=== PATIENT | female | born 1925 | race Caucasian/White ===

== ENCOUNTER 2016-12-17 11:56 | Emergency (ER) | payer MEDICARE ==
[2016-12-17] MEDS ORDERED: NS 0.9% 1000 ML* 1,000 ML IV ONE (12:48)
--- NOTE | 2016-12-17 13:34 | RAD ---
HISTORY: Weakness COMPARISONS: July 09, 2010 VIEWS: 2: Frontal and lateral views of the chest. FINDINGS: CARDIOMEDIASTINAL SILHOUETTE: The cardiomediastinal silhouette is normal. INDRA: The indra are normal. PLEURA: The costophrenic angles are sharp. No pleural abnormalities are noted. LUNG PARENCHYMA: There is hyperinflation with flattening of the diaphragm and expansion of the AP diameter of the chest. ABDOMEN: The upper abdomen is clear. There is no subphrenic gas. BONES AND SOFT TISSUES: Degenerative changes are noted along the spine. OTHER: None. IMPRESSION: HYPERINFLATION, CONSISTENT WITH COPD. NO ACTIVE CARDIOPULMONARY DISEASE.
[2016-12-17 13:37] LABS: Hematocrit 36 % (35-47); Mean Corpuscular HGB Conc 34 g/dl (31-36); Mean Corpuscular Hemoglobin 32 pg (27-31); Mean Corpuscular Volume 94 fL (80-97); Mean Platelet Volume 7 um3 (7.4-10.4); Red Blood Count 3.81 10^6/ul (4.0-5.4); Red Cell Distribution Width 13 % (10.5-15); White Blood Count 11.3 10^3/ul (3.5-10.8)
[2016-12-17 13:56] LABS: Add Diff/Slide Review? Manual Diff Added; Comments Flag Yes
[2016-12-17 13:57] LABS: Calcium 9.4 mg/dL (8.6-10.3); EGFR African American 133.8 (>60); EGFR Non-African American 104.1 (>60); Globulin 2.7 g/dL (2-4); Potassium 3.6 mmol/L (3.5-5.0); Total Bilirubin 0.6 mg/dL (0.2-1.0); Total Protein 6.7 g/dL (6.4-8.9); Troponin I 0.01 ng/mL (<0.04)
--- NOTE | 2016-12-17 14:07 | RAD ---
INDICATION: Weakness and headache COMPARISON: Similar CT of the brain dated December 22, 2015 TECHNIQUE: Contiguous axial sections of the brain were obtained from the skull base to the vertex without contrast. FINDINGS: The ventricles, cisterns and sulci symmetrical involutional changes similar in appearance to the prior head CT. There is moderate periventricular and subcortical white matter hypoattenuation, similar in appearance to the prior CT, most consistent with chronic microvascular disease.. The shafer-white matter differentiation is adequately maintained and there is no sulcal effacement. No significant focal abnormality or mass effect is present. There is no evidence for intracranial hemorrhage. No significant focal osseous abnormality is present. The visualized portion of the paranasal sinuses and mastoid air cells appear clear. IMPRESSION: Chronic findings include evidence of microvascular disease and age-appropriate involutional changes without significant change from the [address]
[2016-12-17 14:23] LABS: TSH (Thyroid Stimulating Horm) 2.04 mcIU/mL (0.34-5.60)
[2016-12-17 15:45] LABS: Urine Bacteria Absent (Absent); Urine Bilirubin Negative (Negative); Urine Glucose Negative (Negative); Urine Nitrite Negative (Negative)
[2016-12-17 17:28] VITALS: BP 115/46
[2016-12-17 18:07] LABS: Immature Granulocytes 1 % (0-9); Neutrophil % 74 % (38-83)
[2016-12-17 18:08] LABS: Add Path Review? YES; RBC Morphology Normal (Normal)
--- NOTE | 2016-12-18 07:29 | ED ---
Hermelindo Le Alfonso scribed for Gianni Almaraz MD on 12/17/16 at 1248 . Complex/Multi-Sys Presentation - HPI Summary HPI Summary: This patient is an 89 year old F [facility]IB[facility] to [facility] with a chief complaint of generalized weakness since 2 weeks ago. She states my eyes get very tired and my body flops. The patient rates the pain 2/10 in severity. Symptoms aggravated by nothing. Symptoms alleviated by nothing. Patient reports headache (1 week). Patient denies CP, SOB, fever, chills, abdominal pain, and diarrhea. - History Of Current Complaint Chief Complaint: EDWeakness Time Seen by Provider: 12/17/16 12:23 Hx Obtained From: Patient Onset/Duration: Sudden Onset, Lasting Weeks - 2, Still Present Timing: Constant Severity Currently: Mild Aggravating Factor(s): nothing Alleviating Factor(s): nothing Associated Signs And Symptoms: Positive: Other - headache (1 week). Patient denies CP, SOB, fever, chills, abdominal pain, and diarrhea. 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12, Hx Shingles Denies: History Other Infectious Disease, Traveled Outside the [place] in Last 30 Days - Family History Known Family History: Negative: Seizure Disorder - Social History Alcohol Use: Daily Alcohol Amount: 2 with water at dinner Substance Use Type: Reports: None Smoking Status (MU): Former Smoker Have You Smoked in the Last Year: No Review of Systems Negative: Fever, Chills Negative: Chest Pain Negative: Shortness Of Breath Negative: Abdominal Pain, Diarrhea Positive: Headache, Weakness All Other Systems Reviewed And Are Negative: Yes Physical Exam - Summary Physical Exam Summary: VITAL SIGNS: Reviewed. GENERAL: Patient is an elderly and nourished female who is lying comfortable in the stretcher. Patient is not in any acute respiratory distress. HEAD AND FACE: No signs of trauma. No ecchymosis, hematomas or skull depressions. No sinus tenderness. EYES: PERRLA, EOMI x 2, No injected conjunctiva, no nystagmus. EARS: Hearing grossly intact. Ear canals and tympanic membranes are within normal limits. MOUTH: Oropharynx within normal limits. NECK: Supple, trachea is midline, no adenopathy, no JVD, no carotid bruit, no c- spine tenderness, neck with full ROM. CHEST: Symmetric, no tenderness at palpation LUNGS: Clear to auscultation bilaterally. No wheezing or crackles. CVS: Regular rate and rhythm, S1 and S2 present, no murmurs or gallops appreciated. ABDOMEN: Soft, non-tender. No signs of distention. No rebound no guarding, and no masses palpated. Bowel sounds are normal. EXTREMITIES: FROM in all major joints, no edema, no cyanosis or clubbing. NEURO: Alert and oriented x 3. No acute neurological deficits. Speech is normal and follows commands. SKIN: Dry and warm Triage Information Reviewed: Yes Vital Signs On Initial Exam: Initial Vitals Temp Pulse Resp BP Pulse Ox 98.2 F 56 14 148/61 99 12/17/16 12:07 12/17/16 12:07 12/17/16 12:07 12/17/16 12:07 12/17/16 12:07 Vital Signs Reviewed: Yes - Julian Coma Scale Best Eye Response: 4 - Spontaneous Best Motor Response: 6 - Obeys Commands Best Verbal Response: 5 - Oriented Coma Scale Total: 15 Diagnostics - Vital Signs Vital Signs Temp Pulse Resp BP Pulse Ox 12/17/16 12:16 58 23 98 12/17/16 12:07 98.2 F 56 14 148/61 99 - Laboratory Result Diagrams: 12/17/16 13:27 12/17/16 13:27 Lab Statement: Any lab studies that have been ordered have been reviewed, and results considered in the medical decision making process. - Radiology CXR Radiology Interpretation Completed By: Radiologist - HYPERINFLATION, CONSISTENT WITH COPD. NO ACTIVE CARDIOPULMONARY DISEASE. ED physician has reviewed this radiology report and agrees. - CT brain CT Interpretation Completed By: Radiologist - Chronic findings include evidence of microvascular disease and age-appropriate involutional changes without significant change from the [address] ED physician has reviewed this radiology report and agrees. - EKG 1332 Cardiac Rate: Bradycardia - BPM 59 EKG Rhythm: Sinus Bradycardia EKG Interpretation: No ST elevation. Normal axis. LVH. Complex Multi-Symp Course/Dx Assessment/Plan: This patient is an 89 year old F [facility] to [facility] with a chief complaint of generalized weakness since 2 weeks ago. She states my eyes get very tired and my body flops. The patient rates the pain 2/10 in severity. Symptoms aggravated by nothing. Symptoms alleviated by nothing. Patient reports headache (1 week). Patient denies CP, SOB, fever, chills, abdominal pain, and diarrhea. An EKG reveals NSR and LVH. Test results with no significant abnormalities except for WBC of 11.3. Urinalysis is contaminated. CXR reveals HYPERINFLATION, CONSISTENT WITH COPD. NO ACTIVE CARDIOPULMONARY DISEASE. ED physician has reviewed this radiology report and agrees. CT brain reveals Chronic findings include evidence of microvascular disease and age-appropriate involutional changes without significant change from the [address] ED physician has reviewed this radiology report and agrees. In the ED course the patient was hydrated and her symptoms resolved. The patient is asymptomatic , ambulating, and tolerating PO without nausea or vomiting. The patient is hemodynamically stable, alert and oriented x3. Therefore, she will be discharged home with PCP follow up. The patient is agreeable with this plan. - Diagnoses Provider Diagnoses: Generalized weakness Discharge - Discharge Plan Condition: Stable Disposition: HOME Patient Education Materials: Weakness (ED) Referrals: Anna Osman MD [Primary Care Provider] - 3 Days Additional Instructions: RETURN TO THE EMERGENCY DEPARTMENT FOR CHANGING OR WORSENING SYMPTOMS. The documentation as recorded by the Hermelindo rodriguez Alfonso accurately reflects the service I personally performed and the decisions made by , Gianni Almaraz MD.
== END 2016-12-17 17:31 | disposition home or self-care (01) ==
LOC: EEVIPCON 11:56 → ED 11:56
DX: R53.1 Weakness (principal); R51 Headache
CPT/HCPCS: 36415; 70450; 71020; 80053; 81003; 81015; 83735; 83880; 84443; 84484; 85025; 85060; 87086; 93005; 96360; 99283